=== PATIENT | male | born 1995 | race Caucasian/White ===

== ENCOUNTER 2018-05-24 01:46 | Emergency (ER) | payer OTHER ==
[~2018-05-24] VITALS: Ht 175.3 cm; Wt 90.7 kg
[2018-05-24 01:49] VITALS: BP_SYST 136
[2018-05-24 02:40] VITALS: BP_SYST 136
== END 2018-05-24 02:40 | disposition home or self-care (01) ==
LOC: SED 01:46
DX: K59.00 Constipation, unspecified (principal); R14.1 Gas pain
CPT/HCPCS: 74018; 99283